=== PATIENT | female | born 1975 | race African-American/Black ===

== ENCOUNTER 2017-01-20 17:59 | Observation (INO) | payer OTHER ==
--- NOTE | ~2017-01-20 | HP ---
History And Physical [address] [place]. [address] NAME: ALIS MARR : 79 STATUS : ADM Yesica PAT#: [id number] AGE: 41 ADM/REG DATE : 01/20/17 MR#: [id number] REPORT SERV DATE: 01/21/17 DICTATED BY: KASIA GALLARDO DATE: 01/21/17 REPORT STATUS : Draft TRANSCRIBED BY: MODL DATE: 01/21/17 DATE OF ADMISSION: 01/20/2017 CHIEF COMPLAINT: A 41-year-old female presenting with headaches and evidence of hypertensive urgency. HISTORY OF PRESENTING ILLNESS: The patient's history was obtained through careful interview with the patient, coupled with review of [facility] medical records. The patient states that she has been having new onset headaches on and off for about a month now, but over the last three days, they have been relatively constant. She has had palpitations and "jumping" sensation in her chest. She has had blurry vision on and off with some nausea, but no vomiting. She describes her headache as "through my head," throbbing, dizzy, aching, 10/10 severity. She has had some slight nausea. No vomiting. Some shortness of breath. About two weeks ago she did have an episode of chest discomfort that lasted about a day, it radiated towards her back in the middle of her chest, about an 8/10 severity, but has not recurred since then. REVIEW OF SYSTEMS: Otherwise, a 14-point review of systems was obtained and was negative. PAST MEDICAL HISTORY: 1. Some kind of "pulmonary" stenosis, unclear if the patient means that she has had pulmonary arterial hypertension and stenosis versus a pulmonary valve stenosis. She was evaluated for catheterization of the heart when she was 14 years old, but has had no cardiac physician to follow up this condition since adulthood. 2. Cellulitis. 3. Hypertension. PAST SURGICAL HISTORY: Denies any. ALLERGIES: NO KNOWN DRUG ALLERGIES. SOCIAL HISTORY: The patient smokes cigarettes. Drinks occasional alcohol. 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 She lives alone, and is single, has five children though ranging between ages 7 and 19. FAMILY HISTORY: Diabetes, stroke, heart disease, and congestive heart failure. CURRENT MEDICATIONS: Include Excedrin migraine. PHYSICAL EXAMINATION: History And Physical [address] [place]. [address] NAME: ALIS MARR : 79 STATUS : ADM Yesica PAT#: [id number] AGE: 41 ADM/REG DATE : 01/20/17 MR#: [id number] REPORT SERV DATE: 01/21/17 DICTATED BY: KASIA GALLARDO DATE: 01/21/17 REPORT STATUS : Draft TRANSCRIBED BY: MODL DATE: 01/21/17 VITAL SIGNS: Temperature 98.7, pulse 77, blood pressure 215/122, respiratory rate 19, and O2 saturation 99% on room air. GENERAL: A pleasant, cooperative female, in no evidence of acute distress at this time. Her headache is improved with control of her blood pressure in the emergency department. HEENT: Pupils equal, round, and reactive to light. No conjunctival pallor. No scleral icterus. Nares are patent. Oropharynx is clear of obstruction. Moist mucous membranes. NECK: Trachea midline. A possible slight enlargement of her thyroid that is actually tender to palpation. LYMPH: No cervical lymphadenopathy. No supraclavicular lymphadenopathy. RESPIRATORY: Clear to auscultation at bases. No wheezes, rales, or rhonchi. Normal respiratory effort. CARDIOVASCULAR: Regular rate and rhythm. The patient definitely has some kind of murmur on exam. It seems to be in the upper chest, uncertain if it is actually an aortic murmur or possibly radiating up into the neck area, although it could be that this is a radiation of her pulmonic valve that I am auscultating. It seems to be in systolic murmur. I do not appreciate rubs or gallops at this time. No extremity edema is appreciated. ABDOMEN: Soft, nontender, and nondistended. Normal bowel sounds auscultated throughout. No hepatosplenomegaly. DERMATOLOGICAL: Warm and dry extremities. No pallor. No cyanosis. PSYCHIATRIC: Normal affect. Good mood. Alert and oriented x3. LABORATORY DATA: White blood cell count 8.5, hemoglobin 13, hematocrit 39, and platelets 215. Sodium 138, potassium 3.2, chloride 104, bicarb 28, BUN 11, creatinine 1.0, and glucose 97. Brain atrial peptide 25. Troponin negative. INR 1.0. Urinalysis: Negative for infection. STUDIES: 1. Chest x-ray by my own evaluation shows no acute cardiopulmonary process. 2. EKG by my own evaluation shows sinus rhythm, left atrial abnormality, right axis deviation. 3. CT scan of the brain without contrast shows no acute intracranial process. ASSESSMENT AND PLAN: 1. Hypertensive urgency. With p.r.n. medications she has had good control. She has had recent chest pain, new onset headaches, some vision changes with murmur in the top of the heart, I would like to evaluate for possible coarctation of the aorta ? Also with mild hypokalemia and mild alkalosis may consider primary hyperaldosteronism ? 2. Murmur. Check an echocardiogram to further define. 3. History of pulmonary stenosis. Uncertain if this is related to her pulmonary valve verus pulmonary arterial hypertension, but the patient has had recent dyspnea/shortness of breath. I would like to begin evaluation with an echocardiogram and a CT angiogram of the chest to evaluate the pulmonary arteries. History And Physical [address] [address] NAME: ALIS MARR : 79 STATUS : ADM Yesica PAT#: [id number] AGE: 41 ADM/REG DATE : 01/20/17 MR#: [id number] REPORT SERV DATE: 01/21/17 DICTATED BY: KASIA GALLARDO DATE: 01/21/17 REPORT STATUS : Draft TRANSCRIBED BY: SARAHI DATE: 01/21/17 4. Palpitations. Check telemetry. 5. Tender thyromegaly. Check thyroid panel. L/MODL Kasia Gallardo M.D. / [id number] CC: Marilyn Maciel M.D.
--- NOTE | ~2017-01-20 | DS ---
Discharge Summary [facility] [address] [place]. [address] NAME: ALIS MARR : 79 STATUS : DIS Yesica PAT#: [id number] AGE: 41 ADM/REG DATE : 01/20/17 MR#: [id number] REPORT SERV DATE: 01/22/17 DICTATED BY: EM BURKETT DATE: 01/22/17 REPORT STATUS : Draft TRANSCRIBED BY: MODL DATE: 01/22/17 ADMISSION DATE: 01/20/2017 DISCHARGE DATE: 01/22/2017 DISCHARGE DIAGNOSES: 1. Hypertensive urgency. It is improved with medical treatment. 2. Obesity. 3. Tobacco abuse. HISTORY OF PRESENT ILLNESS: This is a 41-year-old female patient, who came to the hospital with hypertensive urgency with symptoms of headache. Please see dictated H and P. HOSPITAL COURSE: She was admitted to hospital with hypertensive urgency, was treated with medical treatment. Her blood pressure has been gradually controlled close to normal range. Her headache has been improved along with the hypertension therapy. Had a long discussion regarding hypertension etiology, prognosis, and treatment plan, and she voiced understanding. Therefore, the patient will be discharged to home in stable condition with potassium supplement, hydrochlorothiazide 12.5 mg once a day, and metoprolol 50 mg twice a day. DISPOSITION: The patient is discharged to home in stable condition. Needs to follow up in [facility]. EKL/MODL Em Burkett M.D. / [id number] CC: Marilyn Maciel M.D.
[2017-01-20 16:52] LABS: BASOPHILS 0.4 %; BASOPHILS ABSOLUTE 0.03 10/3/uL (0.0-0.16); EOSINOPHILS 1.4 %; EOSINOPHILS ABSOLUTE 0.12 10/3/uL (0.0-0.53); ER CBC TAT 0 Hrs 05 Mins; HEMATOCRIT 39.7 % (36.0-48.0); HEMOGLOBIN 13.3 g/dL (12.0-16.0); IMMATURE GRANULOCYTES 0.2 %; IMMATURE GRANULOCYTES ABSOLUTE 0.02 10/3/uL (0.0-0.11); LYMPHOCYTES ABSOLUTE 3.58 10/3/uL (0.67-4.30); MANUAL DIFF NO %; MEAN CORPUS HGB CONC 33.5 g/dL (32.0-36.0); MEAN CORPUSCULAR HEMOGLOB 27.3 pg (26.0-34.0); MEAN CORPUSCULAR VOLUME 81.4 fL (80-100); MEAN PLATELET VOLUME 9.9 fL (9.2-13.0); MONOCYTES 6.3 %; MONOCYTES ABSOLUTE 0.54 10/3/uL (0.21-1.20); NEUTROPHILS 49.7 %; NEUTROPHILS ABSOLUTE 4.24 10/3/uL (2.02-8.40); PLATELET COUNT 215 10/3/uL (150-400); RBC DISTRIBUTION WIDTH 16.4 % (12.0-16.0); RED CELL COUNT 4.88 10/6/uL (4.0-5.6); WHITE BLOOD CELLS 8.5 10/3/uL (4.5-10.5)
[2017-01-20 16:59] LABS: PROTIME (NOT ORD) 13.5 SEC (12.0-14.5)
[2017-01-20 17:00] LABS: PARTIAL THROMBO TIME 28.3 SEC (22.5-37.2)
[2017-01-20 17:07] LABS: CALCIUM, SERUM 9.1 MG/DL (8.5-10.4); CHEST PAIN PROFILE TAT 0 Hrs 20 Mins; CHLORIDE, SERUM 104 MMOL/L (96-112); CO2 (CARBON DIOXIDE) 28 MMOL/L (24-34); CREATININE 1.01 MG/DL (0.55-1.02); GFR AFRICAN AMERICAN 81 ML/MIN (>=60); GFR NON AFRICAN AMERICAN 70 ML/MIN (>=60); GLUCOSE, SERUM 97 MG/DL (60-99); POTASSIUM, SERUM 3.2 MMOL/L (3.5-5.3); SODIUM, SERUM 138 MMOL/L (135-148); TROPONIN I <0.02 NG/ML (<0.05)
[2017-01-20 17:08] LABS: BUN (BLOOD UREA NITROGEN) 11 MG/DL (6-23)
[2017-01-20 18:20] LABS: ASCORBIC ACID (UR NOT ORDER) NEG (NEG); BILIRUBIN, URINE NEGATIVE (NEG); ER URINALYSIS TAT 0 Hrs 14 Mins; KETONE, URINE NEGATIVE (NEG); LEUKOCYTE ESTERASE(NOT OR NEG (NEG); NITRITE (URINE) NEG (NEG); WBC (NOT ORDERED) (RFLEX) 2 (0-5)
[2017-01-20] MEDS ORDERED: EXCEDRIN EXTRA1 EACH PO (21:19)
[2017-01-21 05:41] LABS: HEMATOCRIT 41.6 % (36.0-48.0); HEMOGLOBIN 14.2 g/dL (12.0-16.0); MEAN CORPUS HGB CONC 34.1 g/dL (32.0-36.0); MEAN CORPUSCULAR HEMOGLOB 27.7 pg (26.0-34.0); MEAN CORPUSCULAR VOLUME 81.3 fL (80-100); MEAN PLATELET VOLUME 10.3 fL (9.2-13.0); PLATELET COUNT 215 10/3/uL (150-400); RBC DISTRIBUTION WIDTH 16.2 % (12.0-16.0); RED CELL COUNT 5.12 10/6/uL (4.0-5.6); WHITE BLOOD CELLS 7.8 10/3/uL (4.5-10.5)
[2017-01-21 05:45] LABS: MANUAL DIFF YES %
[2017-01-21 05:51] LABS: INTERNATIONAL NORMAL RATI 1.1 UNITS (-); PARTIAL THROMBO TIME 29.9 SEC (22.5-37.2); PROTIME (NOT ORD) 13.8 SEC (12.0-14.5)
[2017-01-21 06:05] LABS: A/G RATIO 0.9 (0.7-1.9); ALBUMIN 3.5 G/DL (3.5-5.0); CALCIUM, SERUM 9.1 MG/DL (8.5-10.4); CHLORIDE, SERUM 112 MMOL/L (96-112); CPK 103 U/L (0-200); CREATININE 0.84 MG/DL (0.55-1.02); FREE T4 0.99 NG/DL (0.76-1.46); GFR AFRICAN AMERICAN 101 ML/MIN (>=60); GFR NON AFRICAN AMERICAN 88 ML/MIN (>=60); GLOBULIN 3.8 G/DL (2.5-4.1); SGOT(AST) 9 U/L (5-40); SGPT(ALT) 15 U/L (5-65); SODIUM, SERUM 143 MMOL/L (135-148); TOTAL BILIRUBIN 0.4 MG/DL (0-1.2); TOTAL PROTEIN 7.3 G/DL (6.0-8.5); TROPONIN I 0.03 NG/ML (<0.05)
[2017-01-21 06:06] LABS: ALKALINE PHOSPHATASE 61 U/L (45-117); BUN (BLOOD UREA NITROGEN) 6 MG/DL (6-23); CK-MB 0.6 NG/ML; CO2 (CARBON DIOXIDE) 22 MMOL/L (24-34); GLUCOSE, SERUM 119 MG/DL (60-99); POTASSIUM, SERUM 4.2 MMOL/L (3.5-5.3)
[2017-01-21 06:11] LABS: ANISOCYTOSIS 1+ (5-10/OIF) (0-5/OIF); LYMPHOCYTES 34 %; LYMPHOCYTES ABSOLUTE (CALC) 2.65 10/3/uL (0.67-4.30); MONOCYTES 6 %; MONOCYTES ABSOLUTE (CALC) 0.47 10/3/uL (0.21-1.20); NEUTROPHILS ABSOLUTE (CALC) 4.68 10/3/uL (2.02-8.40); SEGMENTED NEUTROPHIL (0) 60 %; TOTAL NUCLEATED CELLS 100
[2017-01-21 06:12] LABS: PLATELET ESTIMATE ADQ (ADEQUATE); RBC MORPHOLOGY ABN (NORMAL)
[2017-01-22 07:14] LABS: BUN (BLOOD UREA NITROGEN) 8 MG/DL (6-23); CALCIUM, SERUM 9.6 MG/DL (8.5-10.4); CHLORIDE, SERUM 105 MMOL/L (96-112); CO2 (CARBON DIOXIDE) 22 MMOL/L (24-34); CREATININE 0.89 MG/DL (0.55-1.02); GFR AFRICAN AMERICAN 95 ML/MIN (>=60); GFR NON AFRICAN AMERICAN 82 ML/MIN (>=60); GLUCOSE, SERUM 99 MG/DL (60-99); POTASSIUM, SERUM 4.5 MMOL/L (3.5-5.3); SODIUM, SERUM 137 MMOL/L (135-148)
[2017-01-22] MEDS ORDERED: KDUR20 PO (10:36)
[2017-01-22] MEDS ORDERED: MICROZIDE PO (10:37)
[2017-01-22] MEDS ORDERED: NXL6 PO (10:37)
== END 2017-01-22 13:00 | disposition home or self-care (01) ==
LOC: ER 17:59 → CDU1 22:00 → 5NO 01-21 00:48
PROVIDERS: Emergency Medicine; Hospitalist; Internal Medicine
DX: I16.0 Hypertensive urgency (principal); E66.9 Obesity, unspecified; Q25.6 Stenosis of pulmonary artery; I10 Essential (primary) hypertension; F17.210 Nicotine dependence, cigarettes, uncomplicated; E01.0 Iodine-deficiency related diffuse (endemic) goiter; Z83.3 Family history of diabetes mellitus; Z82.3 Family history of stroke; Z82.49 Family history of ischemic heart disease and other diseases of the circulatory system
CPT/HCPCS: 70450; 71020; 71275; 80048; 80053; 81001; 82550; 82553; 83735; 83880; 84439; 84443; 84481; 84484; 85025; 85610; 85730; 93005; 96372; 96374; 96375; 96376; 99291; A9270-GY; G0378; J0360; J1170; J2405; J3475; Q9967